=== PATIENT | male | born 1955 ===

== ENCOUNTER 2017-08-09 07:58 | Day surgery (SDC) | payer MEDICARE, OTHER ==
[~2017-08-09 07:58] MED LIST: Carbachol 0.01% IO ONE; Chondroitin/Hyaluronate Opth Syringe KIT (0.55 ml-0.5 ml) IO ONE; Ciprofloxacin 0.3% OPTH SOLN OD SCH; Flurbiprofen 0.03% Opht SOLN OD SCH; Hyaluronidase Human, Recombi 150 U/ML VIAL ONE; Lactated Ringer's 500 ML IV ONE; Phenylephrine 2.5% Opht Soln OD SCH; Povidone Iodine Ophthalmic 5% Soln ONE; Tetracaine 0.5% Ophth (OR ONLY) ONE; Tobramycin/Dexamethasone OPHT OINT ONE; Tropicamide 1% Opht SOLUTION OD SCH; acetaZOLAMIDE 500 mg SR Cap PO ONE
[2017-08-09] MEDS ORDERED: Lactated Ringer's 500 ML IV ONE (09:19)
[2017-08-09] MEDS ORDERED: Midazolam 2 MG/2 ML VIAL ONE (11:10)
[2017-08-09] MEDS ORDERED: acetaZOLAMIDE 500 mg SR Cap PO ONE (12:15)
[2017-08-09 12:39] VITALS: RESP 16
[2017-08-09 12:42] VITALS: BP 115/68; PULSE 73; TEMP 97.5; O2SAT 98
--- NOTE | 2017-08-09 20:14 | OP ---
PROCEDURE DATE: 08/09/2017 PREOPERATIVE DIAGNOSIS: Cataract, right eye. POSTOPERATIVE DIAGNOSIS: Cataract, right eye. OPERATIVE PROCEDURE: Phacoemulsification, right eye, insertion of posterior chamber implant. SURGEON: Kenyon Lopez MD CO-SURGEON: Lorenzo Flores MD TYPE OF ANESTHESIA: Local with IV sedation. PROCEDURE: The patient was brought into the operating room, placed in supine position, prepped and draped in the usual fashion for ophthalmic surgery. Lid speculum was inserted, lids and exposing globe. A side-port incision was made superiorly and inferiorly with a disposable sharp blade. Anterior chamber was filled with Viscoat. A near clear corneal incision was made temporally with a 2.75-mm keratome. Capsulorrhexis was then performed with Utrata forceps. Hydrodissection carried out with balanced salt solution. Nucleus was phacoemulsified. Remaining cortical fragments were removed with a split irrigation and aspiration system. The capsular sac was filled with Provisc. A posterior chamber lens was then injected into the capsular sac and rotated into horizontal position. Provisc was aspirated out of the anterior chamber. The pupil was constricted with Miochol. The wound was found to be watertight. Topical Betadine, Timoptic, and TobraDex ointment and pressure patch were applied. The patient tolerated the procedure well. Kenyon Lopez MD
== END 2017-08-09 12:35 | disposition home or self-care (01) ==
LOC: C.SDS 07:58
PROVIDERS: ATTEND Ophthalmology
DX: H26.9 Unspecified cataract (principal)
CPT/HCPCS: 66984; 82948; J2250; J3010; J3470; J7120; V2632

== ENCOUNTER 2018-01-24 07:09 | Day surgery (SDC) | payer MEDICARE, OTHER ==
[2018-01-10 11:34] VITALS: BMI 21.9
[~2018-01-24 07:09] MED LIST changes: -Carbachol 0.01% IO ONE; -Chondroitin/Hyaluronate Opth Syringe KIT (0.55 ml-0.5 ml) IO ONE; -Ciprofloxacin 0.3% OPTH SOLN OD SCH; +Ciprofloxacin 0.3% OPTH SOLN OS SCH; -Flurbiprofen 0.03% Opht SOLN OD SCH; +Flurbiprofen 0.03% Opht SOLN OS SCH; -Hyaluronidase Human, Recombi 150 U/ML VIAL ONE; -Phenylephrine 2.5% Opht Soln OD SCH; +Phenylephrine 2.5% Opht Soln OS SCH; -Povidone Iodine Ophthalmic 5% Soln ONE; -Tetracaine 0.5% Ophth (OR ONLY) ONE; -Tobramycin/Dexamethasone OPHT OINT ONE; -Tropicamide 1% Opht SOLUTION OD SCH; +Tropicamide 1% Opht SOLUTION OS SCH
[2018-01-24] MEDS ORDERED: Lactated Ringer's 1,000 ML IV ONE (08:02)
[2018-01-24 08:16] VITALS: O2SAT 100
[2018-01-24] MEDS ORDERED: Midazolam 2 MG/2 ML VIAL ONE (09:07)
[2018-01-24] MEDS: Carbachol 0.01% IO ONE ×2 (09:26→09:55)
[2018-01-24] MEDS: Chondroitin/Hyaluronate Opth Syringe KIT (0.55 ml-0.5 ml) IO ONE ×2 (09:26→09:55)
[2018-01-24] MEDS: Hyaluronidase Human, Recombi 150 U/ML VIAL ONE ×2 (09:27→09:55)
[2018-01-24] MEDS: Tobramycin/Dexamethasone OPHT OINT ONE ×2 (09:28→10:20)
[2018-01-24] MEDS ORDERED: Hyaluronate Sodium 10 mg/ml Ophth Syringe ONE (10:15)
[2018-01-24] MEDS ORDERED: acetaZOLAMIDE 500 mg SR Cap PO ONE (10:38)
[2018-01-24 12:16] VITALS: RESP 15
[2018-01-24 12:19] VITALS: BP 122/74; PULSE 72; TEMP 97.6
--- NOTE | 2018-01-25 07:15 | OP ---
PROCEDURE DATE: 01/24/2018 PREOPERATIVE DIAGNOSIS: Mature cataract, left eye. POSTOPERATIVE DIAGNOSIS: Mature cataract, left eye. OPERATIVE PROCEDURE: Phacoemulsification of left eye, insertion of posterior chamber implant. SURGEON: Kenyon Lopez MD CO-SURGEON: Lorenzo Flores MD ANESTHESIA TYPE: Local with intravenous sedation. ANESTHESIOLOGIST: . PROCEDURE: The patient was brought into the operating room, placed in supine position, prepped and draped in the usual fashion for ophthalmic surgery. Lid speculum was inserted, lids and exposing globe. A side-port incision was made superiorly and inferiorly with a disposable sharp blade. Anterior chamber was filled with Viscoat. A near clear corneal incision was made temporally with a 2.75-mm keratome. Capsulorrhexis was then performed with Utrata forceps. Hydrodissection carried out with balanced salt solution. Nucleus was phacoemulsified. Remaining cortical fragments were removed with a split irrigation and aspiration system. The capsular sac was filled with Provisc. A posterior chamber lens was then injected into the capsular sac and rotated into horizontal position. Provisc was aspirated out of the anterior chamber. The pupil was constricted with Miochol. The wound was found to be watertight. Topical Betadine, Timoptic, and TobraDex ointment and pressure patch were applied. The patient tolerated the procedure well. Kenyon Lopez MD
== END 2018-01-24 11:35 | disposition home or self-care (01) ==
LOC: C.SDS 07:09
PROVIDERS: ATTEND Ophthalmology
DX: H25.12 Age-related nuclear cataract, left eye (principal)
CPT/HCPCS: 66984; 82948; J2250; J3010; J3470; J7120